=== PATIENT | male | born 1980 | race Caucasian/White ===

== ENCOUNTER 2019-03-08 14:08 | Emergency (ER) | payer MEDICAID ==
[~2019-03-08] VITALS: Ht 167.6 cm; Wt 77.1 kg
[2019-03-08 14:19] VITALS: BP_SYST 113
[2019-03-08] MEDS ORDERED: LIDOCAINE 1% 10 MG/ML, 20 ML MDV IJ ONE (16:30)
[2019-03-08] MEDS ORDERED: DIPH-TET-PERTUS Vaccine 0.5 ML VIAL (ADACEL) IM ONE (16:30)
[2019-03-08] MEDS ORDERED: BACITRACIN 1 GM OINT TP ONE (17:09)
[2019-03-08 17:47] VITALS: BP_SYST 145
== END 2019-03-08 17:46 | disposition home or self-care (01) ==
LOC: SED 14:08
DX: S91.012A Laceration without foreign body, left ankle, initial encounter (principal); W11.XXXA Fall on and from ladder, initial encounter; Y93.89 Activity, other specified; Y92.89 Other specified places as the place of occurrence of the external cause; Y99.8 Other external cause status
CPT/HCPCS: 12002; 73610; 90471; 90715; 99283; J2001